=== PATIENT | male | born 1965 ===

== ENCOUNTER 2017-06-22 13:20 | Emergency (ER) | payer BC ==
[2017-06-22 16:10] VITALS: BP 158/106
--- NOTE | 2017-06-22 16:29 | UC ---
Complaint Male HPI - HPI Summary HPI Summary: 52 y/o male with c/o pain, tingling sensation on right side of penis for 2 days , woke this AM with red scrotum, is not sure if this is because he is wearing underwear. no PMH, no new sexual partners, requesting STD testing. no meds no discharge, painful intercourse, painful urination or Bms - History of Current Complaint Hx Obtained From: Patient Onset/Duration: Sudden Onset, Lasting Days - 2 days Timing: Constant Severity Initially: Mild Severity Currently: Mild <Deirdre Morrell - Last Filed: 06/22/17 16:25> <Eddie Thomas - Last Filed: 06/22/17 16:46> - History of Current Complaint Chief Complaint: UCSTDScreening Stated Complaint: STD TESTING Time Seen by Provider: 06/22/17 16:16 - Allergies/Home Medications Allergies/Adverse Reactions: Allergies Allergy/AdvReac Type Severity Reaction Status Date / Time No Known Allergies Allergy Verified 06/22/17 16:10 Home Medications: Home Medications NK [No Home Medications Reported] 06/22/17 [History Confirmed 06/22/17] PMH/Surg Hx/FS Hx/Imm Hx Previously Healthy: Yes - no recent dr visits, no follow up - Surgical History Surgical History: Yes Surgery Procedure, Year, and Place: right knee repair of ACL. repair ruptured disk lower back - Social History Alcohol Use: Weekly Alcohol Amount: on weekends Substance Use Type: None Smoking Status (MU): Heavy Every Day Tobacco Smoker Amount Used/How Often: 1/2 ppd Length of Time of Smoking/Using Tobacco: started age 22 <Deirdre Morrell - Last Filed: 06/22/17 16:25> - Family History Known Family History: Positive: Hypertension <Eddie Thomas - Last Filed: 06/22/17 16:46> Review of Systems Genitourinary: Other - red bumps on side of penis red scrotum All Other Systems Reviewed And Are Negative: Yes <Deirdre Morrell - Last Filed: 06/22/17 16:25> Constitutional: Negative Skin: Rash Eyes: Negative ENT: Negative Respiratory: Negative Cardiovascular: Negative Gastrointestinal: Negative Genitourinary: Negative Motor: Negative Neurovascular: Negative Musculoskeletal: Negative Neurological: Negative Psychological: Negative Is Patient Immunocompromised?: No All Other Systems Reviewed And Are Negative: Yes <Eddie Thomas - Last Filed: 06/22/17 16:46> Physical Exam Triage Information Reviewed: Yes Appearance: Well-Appearing, No Pain Distress, Well-Nourished Vital Signs: Initial Vital Signs Temp 99.7 F 06/22/17 16:05 Pulse 94 06/22/17 16:05 Resp 14 06/22/17 16:05 BP 158/106 06/22/17 16:05 Pulse Ox 100 06/22/17 16:05 Eye Exam: Normal - Additional Comments genital examination- circumcised male with normal genitalia with 2 small pinpoint red donald on right lateral penis, no discharge noted, non-tender to examination, scrotum red, worse L>R, non-tender, normal decended testicles, non- tender, no epididimis tenderness. no maceration, no skin breakdown. <Deirdre Morrell - Last Filed: 06/22/17 16:25> Vital Signs: Initial Vital Signs Temp 99.7 F 06/22/17 16:05 Pulse 94 06/22/17 16:05 Resp 14 06/22/17 16:05 BP 158/106 06/22/17 16:05 Pulse Ox 100 06/22/17 16:05 ENT: Positive: Hearing grossly normal. Negative: Nasal congestion, Nasal drainage, Trismus, Muffled/hoarse voice Neck: Positive: Supple Respiratory: Positive: Lungs clear, Normal breath sounds Cardiovascular: Positive: RRR, No Murmur Abdomen Description: Positive: Other: - circumcised/no urethral d/c, no ulceration, diffuse mild erthyma of scrotum. Negative: CVA Tenderness (R), CVA Tenderness (L) Musculoskeletal: Positive: No Edema Neurological: Positive: Alert Psychological Exam: Normal Skin Exam: Normal Skin: Positive: Other <Eddie Thomas - Last Filed: 06/22/17 16:46> Complaint Male Course/Dx - Differential Dx/Diagnosis Provider Diagnoses: Rash/possible tinea cruris <Eddie Thomas - Last Filed: 06/22/17 16:46> Discharge <Deirdre Morrell - Last Filed: 06/22/17 16:25> <Eddie Thomas - Last Filed: 06/22/17 16:46> - Discharge Plan Condition: Stable Disposition: HOME Patient Education Materials: [facility] (ED) Referrals: [facility] [place] [facility] [Outside] - 2 Weeks (you should find a MD to follow your BP It was in the hypertensive range here today) Additional Instructions: I suggest you use lotrimen cr on you scrotum Use up to 2 weeks Tests for sexually transmitted diseases pending recheck for new or worsening symptoms BP today was elevated If it remained consistently in this range you would need treatment
--- NOTE | 2017-06-23 18:35 | ED ---
Progress - Progress Note Progress Note: CALL PATIENT. G/C (-). IF WORSE ER/PCP. Course/Dx - Diagnoses Provider Diagnoses: STD (male)
== END 2017-06-22 17:02 | disposition home or self-care (01) ==
LOC: UCEAST 13:20
DX: R21 Rash and other nonspecific skin eruption (principal)
CPT/HCPCS: 87491; 87591; 99201; G0463